=== PATIENT | male | born 1995 | race Caucasian/White ===

== ENCOUNTER 2017-06-16 11:14 | Inpatient (IN) | payer MEDICAID ==
[~2017-06-16] VITALS: Ht 167.6 cm; Wt 79.4 kg
[2017-06-16 11:34] VITALS: BP 115/62
--- NOTE | 2017-06-16 11:41 | NUR ---
PATIENT TO BED 1 AT THIS TIME.
--- NOTE | 2017-06-16 11:44 | NUR ---
DR. FORMAN AT BEDSIDE.
--- NOTE | 2017-06-16 11:45 | NUR ---
22/M BIB PARTNER FOR LEFT CHEST SQEEZING PAIN AND LEFT JAW PAIN 8/10 INTERMITTENTLY SINCE YESTERDAY MORNING. DENIES HX. DENIES MEDS. PARTNER STS PT DRINKS A LOT OF MONSTER SPORTS DRINKS. DENIES FEVER. PT APPEARS CALM, COOPERATIVE, NO DIAPHORESIS NOTED. VSS. EKG SHOWS ST ELEVATION X2 TESTS. DR. BARAHONA AT BEDSIDE. XR AT BEDSIDE. IV INSERTED. CP PROTOCOL IN PLACE.
[2017-06-16] MEDS ORDERED: NITROGLYCERIN 0.4 MG TAB SL ONE ×4 (11:50→12:15)
[2017-06-16] MEDS ORDERED: ASPIRIN 325 MG TAB PO ONE (11:50)
[2017-06-16 12:01] LABS: BASOPHILS # (AUTO) 0.3 K/uL (0.00-0.22); BASOPHILS % (AUTO) 4.4 % (0.0-2.0); EOSINOPHILS # (AUTO) 0.4 K/uL (0-0.4); EOSINOPHILS % (AUTO) 6.2 % (0.0-4.0); HEMATOCRIT 45.4 % (36-52); HEMOGLOBIN 15.3 g/dL (12.0-18.0); LYMPHOCYTES # (AUTO) 1.6 K/uL (2.0-11.5); LYMPHOCYTES % (AUTO) 25.4 % (20.5-51.1); MEAN CORPUSCULAR HEMOGLOBIN 30 pg (27-31); MEAN CORPUSCULAR HGB CONC 34 g/dL (33-37); MEAN CORPUSCULAR VOLUME 90 fL (80-94); MONOCYTES # (AUTO) 0.6 K/uL (0.8-1.0); MONOCYTES % (AUTO) 9.7 % (1.7-9.3); NEUTROPHILS # (AUTO) 3.3 K/uL (1.8-7.7); NEUTROPHILS % (AUTO) 54.3 % (42.2-75.2); PLATELET COUNT (AUTO) 200 K/uL (140-450); RED BLOOD CELL COUNT(AUTO) 5.07 MIL/uL (4.20-6.10); RED CELL DISTRIBUTION WIDTH 12.7 % (11.6-13.7); WHITE BLOOD COUNT (AUTO) 6.3 K/uL (4.5-11.0)
[2017-06-16] MEDS ORDERED: ASPIRIN 81 MG TAB.CHEW ONE (12:01)
--- NOTE | 2017-06-16 12:01 | NUR ---
URINAL GIVEN FOR SAMPLE.
--- NOTE | 2017-06-16 12:07 | NUR ---
SECOND ORDER VERBAL OF NITRO 0.4 SL GIVEN TO PT.
[2017-06-16] MEDS ORDERED: ONDANSETRON 4 MG/2 ML VIAL IVP ONE (12:20)
[2017-06-16] MEDS ORDERED: MORPHINE SULFATE 2 MG/ML SYR IVP ONE (12:20)
--- NOTE | 2017-06-16 12:28 | NUR ---
F/U EKG DONE AT BEDSIDE.
--- NOTE | 2017-06-16 12:28 | NUR ---
DR. FORMAN AT BEDSIDE. FAMILY AT BEDSIDE.
[2017-06-16 12:52] LABS: ALBUMIN 4.1 g/dL (3.4-5.0); ANION GAP 10.9 (8-16); CARBON DIOXIDE 30.1 mmol/L (21-32); CREATININE 0.9 mg/dL (0.7-1.3); TOTAL BILIRUBIN 0.3 mg/dL (0.0-1.0)
--- NOTE | 2017-06-16 14:16 | NUR ---
PATIENT ARRIVED ON UNIT WITH 2 ER NURSES ON A GURNEY. PATIENT AMBULATED TO BED. PATIENT GAIT STEADY. NASAL CANNULA INTACT AT 2L. IV AT RIGHT AND LEFT AC 20 G, SALINE LOCKED. PATIENT SKIN INTACT. REMOVED PANTS, SHOES, AND SOCKS AND PLACED IN PERSONAL BELONGING BAGS, AND PLACED IN DRAWER NEXT TO BED. MRSA SCREENING DONE. APPLIED BROWN SOCKS. ADMINISTERED TELE MONITOR. VITAL SIGNS WNL. PATIENT DENIES PAIN AT THIS TIME. WILL CONTINUE TO MONITOR PATIENT AND AWAIT ORDERS.
--- NOTE | 2017-06-16 14:30 | NUR ---
APatient will be admitted to care of DR. CEBALLOS. Admited to TELE. Will go to room 124-B. Belongings list completed. Report to JIM PATRICK.
[2017-06-16] MEDS: NACL 0.9% 1,000 ML IV SCH (14:38)
[2017-06-16] MEDS ORDERED: ACETAMINOPHEN 325 MG TAB PO PRN (14:40)
[2017-06-16] MEDS ORDERED: ONDANSETRON 4 MG/2 ML VIAL IVP PRN (14:40)
[2017-06-16] MEDS ORDERED: HYDROcodone/APAP 7.5/325 MG 1 TAB PO PRN (14:40)
[2017-06-16 14:47] VITALS: BP 113/75
--- NOTE | 2017-06-16 15:50 | NUR ---
PATIENT COMPLAINED OF CHEST PAIN. NO RADIATION. 6 OUT OF 10. ADMINISTERED NORCO. WILL REASSESS PATIENT.
[2017-06-16 16:08] LABS: FREE T4 (FREE THYROXINE) 0.95 ng/dL (0.76-1.46); MAGNESIUM 2.1 mg/dL (1.8-2.4); PHOSPHORUS 3.7 mg/dL (2.5-4.9); THYROID STIMULATING HORMONE 1.28 uIU/mL (0.34-3.74)
--- NOTE | 2017-06-16 17:37 | NUR ---
PATIENT RESTING COMFORTABLY. NO SIGNS OF DISTRESS. NO COMPLAINTS AT THIS TIME. WILL CONTINUE TO MONITOR PATIENT.
--- NOTE | 2017-06-16 19:10 | NUR ---
ENDORSED PATIENT TO PACKAGE COLLECTOR NURSE AT BEDSIDE FOR CONTINUITY OF CARE. PATIENT IS STABLE, SOME SIGNS OF ANXIETY. PACKAGE COLLECTOR NURSE AWARE.
--- NOTE | 2017-06-16 19:15 | NUR ---
RECEIVED PT AWAKE TALKING TO VISITORS AT BEDSIDE, VITAL SIGNS STABLE, SB ON TELE, ASYMPTOMATIC, DENIES ANY PAIN, ON O2 AT 2L/NC, NO SOB NOTED, IVF INFUSING WELL, PLAN OF CARE DISCUSSED, CALL LIGHT WITHIN REACH.
[2017-06-16 20:00] VITALS: BP 106/54
[2017-06-16] MEDS: METOPROLOL 25 MG TAB PO SCH (21:00)
[2017-06-16] MEDS: DOCUSATE SODIUM 100 MG GELCAP PO SCH (21:01)
--- NOTE | 2017-06-16 21:05 | NUR ---
DUE MED ADMINISTERED, METOPROLOL HOLD DUE TO DECREASE PULSE, ASYMPTOMATIC, ALL NEEDS ATTENDED.
--- NOTE | 2017-06-16 23:40 | NUR ---
PT SLEEPING, EASILY AROUSABLE, VITAL SIGNS TAKEN, SB ON TELE, ASYMPTOMATIC, DENIES PAIN, CONTINUE TO MONITOR CLOSELY.
[2017-06-17] VITALS: BP 94/52
--- NOTE | 2017-06-17 01:00 | NUR ---
PT AMBULATED TO BR WITH STEADY GAIT AND VOIDED FREELY, URINE SENT TO LAB FOR TEST.
[2017-06-17 01:15] LABS: APPEARANCE,URINE CLEAR (CLEAR); BILIRUBIN,URINE NEGATIVE (NEGATIVE); BLOOD, URINE NEGATIVE (NEGATIVE); COLOR,URINE YELLOW (YELLOW); LEUKOCYTE ESTERASE ,URINE NEGATIVE (NEGATIVE); NITRITE, URINE NEGATIVE (NEGATIVE); UGLUCOSE NEGATIVE (NEGATIVE)
[2017-06-17 01:22] LABS: BARBITURATE, URINE NEG. ng/ml (NEG <=200); BENZODIAZEPINE, URINE NEG. ng/mL (NEG <=200); CANNABINOID, URINE NEG. ng/mL (NEG <=50); COCAINE, URINE NEG. ng/mL (NEG <=300); OPIATE, URINE NEG. ng/mL (NEG <=2000); PHENCYCLIDINE SCREEN,URINE NEG. ng/mL (NEG <=25)
[2017-06-17] MEDS: NACL 0.9% 1,000 ML IV SCH (03:33)
[2017-06-17 04:00] VITALS: BP 99/55
--- NOTE | 2017-06-17 04:00 | NUR ---
PT SLEEPING, EASILY AROUSABLE, VITAL SIGNS STABLE, SB ON TELE, ASYMPTOMATIC, DENIES ANY PAIN, IVF INFUSING WELL, MONITORED CLOSELY.
[2017-06-17 05:08] LABS: BASOPHILS # (AUTO) 0.3 K/uL (0.00-0.22); BASOPHILS % (AUTO) 4.2 % (0.0-2.0); EOSINOPHILS # (AUTO) 0.4 K/uL (0-0.4); EOSINOPHILS % (AUTO) 6.6 % (0.0-4.0); HEMATOCRIT 43.2 % (36-52); HEMOGLOBIN 14.6 g/dL (12.0-18.0); LYMPHOCYTES # (AUTO) 1.8 K/uL (2.0-11.5); LYMPHOCYTES % (AUTO) 28.5 % (20.5-51.1); MEAN CORPUSCULAR HEMOGLOBIN 31 pg (27-31); MEAN CORPUSCULAR HGB CONC 34 g/dL (33-37); MEAN CORPUSCULAR VOLUME 91 fL (80-94); MONOCYTES # (AUTO) 0.5 K/uL (0.8-1.0); MONOCYTES % (AUTO) 8.6 % (1.7-9.3); NEUTROPHILS # (AUTO) 3.4 K/uL (1.8-7.7); NEUTROPHILS % (AUTO) 52.1 % (42.2-75.2); PLATELET COUNT (AUTO) 182 K/uL (140-450); RED BLOOD CELL COUNT(AUTO) 4.74 MIL/uL (4.20-6.10); RED CELL DISTRIBUTION WIDTH 12.3 % (11.6-13.7); WHITE BLOOD COUNT (AUTO) 6.4 K/uL (4.5-11.0)
[2017-06-17 05:31] LABS: ANION GAP 8.4 (8-16); CARBON DIOXIDE 29.8 mmol/L (21-32); CREATININE 0.8 mg/dL (0.7-1.3); POTASSIUM 4.2 mmol/L (3.5-5.1)
[2017-06-17 05:38] LABS: CHOL/HDL RATIO 3.3 (1-4.5); MAGNESIUM 2.1 mg/dL (1.8-2.4); PHOSPHORUS 4.4 mg/dL (2.5-4.9)
--- NOTE | 2017-06-17 06:28 | NUR ---
PT SLEEPING, EASILY AROUSABLE, DENIES ANY PAIN, NO SOB NOTED, PROTONIX PO GIVEN WITH EDUCATION PROVIDED, IVF INFUSING WELL, MONITORED CLOSELY.
[2017-06-17] MEDS ORDERED: PANTOPRAZOLE 40 MG TABEC PO SCH (06:30)
--- NOTE | 2017-06-17 07:10 | NUR ---
RECEIVED PATENT REPORT AT BEDSIDE. PATIENT AWAKE, ALERT AND ORIENTED. NO S/S OF DISTRESS NOTED. PATIENT ON ROOM AIR. NO SOB. NO C/P PAIN AT THIS TIME. PATIENT ON TELE MONITORING. BED LOWERED WITH CALL LIGHT WITHIN REACH. WILL CONTINUE TO MONITOR
--- NOTE | 2017-06-17 07:20 | NUR ---
PT AWAKE, NO SIGNS OF DISTRESS, REPORT GIVEN TO JIM LOPEZ FOR CONTINUITY OF CARE.
[2017-06-17 08:00] VITALS: BP 106/62
[2017-06-17] MEDS ORDERED: LISINOPRIL 5 MG TAB PO SCH (09:00)
[2017-06-17] MEDS ORDERED: ATORVASTATIN 20 MG TAB PO SCH (09:00)
[2017-06-17] MEDS: METOPROLOL 25 MG TAB PO SCH (09:00)
[2017-06-17] MEDS ORDERED: ECOTRIN 81 MG TABEC PO SCH (09:00)
--- NOTE | 2017-06-17 09:00 | NUR ---
NOTIFIED DR YOST ABOUT PATIENT'S HIGH BLOOD PRESSURE. DR RUVALCABA PUT ORDERS Addendum: 06/17/17 at 1101 by Greg Zarate RN WRONG PATIENT
--- NOTE | 2017-06-17 09:19 | NUR ---
PATIENT HAS BEEN SCREENED AND CATEGORIZED MODERATE NUTRITION RISK. PATIENT WILL BE SEEN WITHIN 3-5 DAYS OF ADMISSION. 06/19/17-06/21/[address]
[2017-06-17] MEDS: DOCUSATE SODIUM 100 MG GELCAP PO SCH (09:41)
--- NOTE | 2017-06-17 11:22 | NUR ---
DISCHARGE INSTRUCTIONS AND DISCHARGE PRESCRIPTIONS GIVEN. PATIENT VERBALIZED UNDERSTANDING. IV LINE DISCONTINUED. TELE LEADS TAKEN OFF. PATIENT LEFT WITH ALL HIS BELONGINGS AND DISCHARGE PAPERS. PATIENT LEFT IN STABLE CONDITION
== END 2017-06-17 11:24 | disposition home or self-care (01) | DRG 243 ==
LOC: MED 11:14 → MTU 13:50
PROVIDERS: ADMIT Family Medicine; ATTEND Family Medicine
DX: K21.9 Gastro-esophageal reflux disease without esophagitis (principal); M94.0 Chondrocostal junction syndrome [Tietze]
CPT/HCPCS: 36415; 71010; 80048; 80053; 80305; 81003; 83036; 83735; 83880; 84100; 84439; 84443; 84484; 85025; 85610; 85730; 87081; 93005; 96374; 96375; 99291; J2270; J2405; J7030; Q0092

== ENCOUNTER 2017-11-06 16:48 | Emergency (ER) | payer MEDICAID ==
[~2017-11-06] VITALS: Ht 170.2 cm; Wt 72.6 kg
--- NOTE | 2017-11-06 16:51 | NUR ---
PT TAKEN IN WHEELCHAIR TO BED 10
[2017-11-06 16:55] VITALS: BP 111/62
[2017-11-06] MEDS ORDERED: LIDOCAINE 2% 1000 MG/50 ML VIAL INJ ONE (16:55)
[2017-11-06] MEDS ORDERED: fentaNYL 0.05 MG/ML VIAL IM ONE (16:55)
--- NOTE | 2017-11-06 16:58 | NUR ---
22 YO MALE BIB SELF FOR LACERATION TO LATERAL LEFT LOWER LEG. BLEEDING CONTROLLED STATS HE WAS USING A CHAINSAW. AWAKE AND ALERT DENIES HX, MEDS OR ALLERGIES. . DENIES N/V/D; SKIN IS PINK/WARM/DRY; AAOX4 WITH EVEN AND STEADY GAIT; LUNGS CLEAR BL; HR EVEN AND REGULAR; PT DENIES ANY FEVER, CP, SOB, OR COUGH AT THIS TIME; PATIENT STATES PAIN OF 8/10 AT THIS TIME; VSS; PATIENT POSITIONED FOR COMFORT; HOB ELEVATED; BEDRAILS UP X2; BED DOWN. ER MD MADE AWARE OF PT STATUS.
[2017-11-06 18:22] VITALS: BP 110/62
--- NOTE | 2017-11-06 18:22 | NUR ---
Patient discharged with v/s stable. Written and verbal after care instructions given and explained. Patient alert, oriented and verbalized understanding of instructions. Ambulatory with steady gait. All questions addressed prior to discharge. ID band removed. Patient advised to follow up with PMD. Rx of keflex and motrin given. Patient educated on indication of medication including possible reaction and side effects. Opportunity to ask questions provided and answered.
== END 2017-11-06 18:22 | disposition home or self-care (01) ==
LOC: MED 16:48
DX: S81.812A Laceration without foreign body, left lower leg, initial encounter (principal); W22.8XXA Striking against or struck by other objects, initial encounter; Y93.89 Activity, other specified; Y92.89 Other specified places as the place of occurrence of the external cause; Y99.8 Other external cause status
CPT/HCPCS: 12002; 90471; 90715; 96372; 99284; J2001; J3010

== ENCOUNTER 2018-05-19 20:10 | Emergency (ER) | payer MEDICAID ==
[~2018-05-19] VITALS: Ht 170.2 cm; Wt 122.5 kg
[2018-05-19 20:12] VITALS: BP 163/80
--- NOTE | 2018-05-19 20:15 | NUR ---
PT TAKEN TO BED 3
--- NOTE | 2018-05-19 20:22 | NUR ---
PT PRESENTS TO ED WITH R EAR PAIN X 1 DAY. PT DENIES ANY TRAUMA OR INJURY. NO HEARING LOSS TO R EAR. PT PLACED IN BED, PENDING MD HAQUE. VSS.
[2018-05-19] MEDS ORDERED: KETOROLAC 30 MG/ML VIAL IM ONE (20:25)
[2018-05-19 20:39] VITALS: BP 163/80
--- NOTE | 2018-05-19 20:40 | NUR ---
Patient discharged with v/s stable. Written and verbal after care instructions given and explained. Patient alert, oriented and verbalized understanding of instructions. Ambulatory with steady gait. All questions addressed prior to discharge. ID band removed. Patient advised to follow up with PMD. Rx of AMOXICILLIN, TYLENOL WITH CODEINE, NAPROSYN given. Patient educated on indication of medication including possible reaction and side effects. Opportunity to ask questions provided and answered.
== END 2018-05-19 20:40 | disposition home or self-care (01) ==
LOC: MED 20:10
DX: H66.91 Otitis media, unspecified, right ear (principal)
CPT/HCPCS: 96372; 99283; J1885

== ENCOUNTER 2019-03-14 20:03 | Emergency (ER) | payer MEDICAID ==
[~2019-03-14] VITALS: Ht 162.6 cm; Wt 127.0 kg
[2019-03-14 20:14] VITALS: BP 134/75
--- NOTE | 2019-03-14 20:22 | NUR ---
24 Y/O MALE C/O PAIN ON SACRUM FOR 2 DAYS. PT. STATES THAT STATES HE HAS HAD THIS PROBLEM FOR A YEAR. ABOUT TWO DAYS AGO, THE AREA BECAME PAINFUL AND LEAKED THICK WHITE PUS WHEN PRESSURE WAS PLACED ON IT. HE STATES 8/10 PRESSURE PAIN HURTS WHEN SITTING . LEFT SACRUM SHOWS A 1 INCH INVERTED ABCESS. ER MD MADE AWARE OF STATUS. [id number]. PARENTS ARE AT BEDSIDE. HX- DENIES RX- NONE ALL-NKA
--- NOTE | 2019-03-14 20:25 | NUR ---
DR. LEAL EVALUATING PT AT BEDSIDE.
--- NOTE | 2019-03-14 20:27 | NUR ---
ISABELA KRISHNA AT BEDSIDE.
[2019-03-14] MEDS ORDERED: LIDOCAINE/EPI 1% 1:100000 20 ML VIAL INJ ONE (20:50)
--- NOTE | 2019-03-14 21:20 | NUR ---
PATIENT IS IN BED. PARENTS ARE AT BEDSIDE.
--- NOTE | 2019-03-14 23:56 | NUR ---
ISABELA KRISHNA AT BEDSIDE FOR PROCEDURE.
[2019-03-15] MEDS ORDERED: HYDROcodone/APAP 5/325 MG 1 TAB TAB PO ONE
[2019-03-15] MEDS ORDERED: CEPHALEXIN 500 MG CAP PO ONE
--- NOTE | 2019-03-15 00:11 | NUR ---
PTS WOUND WAS COVERD IN A NON ADHERING GAUZE.
--- NOTE | 2019-03-15 00:27 | NUR ---
Patient discharged with v/s stable. Written and verbal after care instructions given and explained. Patient alert, oriented and verbalized understanding of instructions. Ambulatory with steady gait. All questions addressed prior to discharge. ID band removed. Patient advised to follow up with PMD. Rx of KEFLEX 500MG; NORCO 5MG-325MG given. Patient educated on indication of medication including possible reaction and side effects. Opportunity to ask questions provided and answered.
[2019-03-15 00:28] VITALS: BP 137/73
== END 2019-03-15 00:27 | disposition home or self-care (01) ==
LOC: MED 20:03
DX: L05.01 Pilonidal cyst with abscess (principal)
CPT/HCPCS: 10080; 99284; J2001

== ENCOUNTER 2019-12-16 20:50 | Emergency (ER) | payer MEDICAID, OTHER ==
[~2019-12-16] VITALS: Ht 170.2 cm; Wt 122.5 kg
--- NOTE | 2019-12-16 21:30 | NUR ---
PT W/C ASSITED TO BED #2
--- NOTE | 2019-12-16 21:30 | NUR ---
PT 24 Y/O MALE BIB SELF FOR C/O 01/13 ANKLE PAIN S/P FALL YESTERDAY. PT NOTED WITH NON-PITTING EDEMA OF THE LEFT ANKLE. PEDAL PULSES FELT, STRONG, EQUAL BILAT. CAP REFILL <3. PT STATES UNABLE TO WALK DUE TO PAIN. CMS INTACT. PT DENIES NUMBNESS/TINGLING. PT STATES HE TOOK PAIN MEDICATION AT HOME 800MG 2 TAB @ 1400 WITH EFFECTIVE RESULTS BUT PAIN HAS RETURNED. PT STATES HE ALSO USED ICE PACKS FOR PAIN MANAGEMENT BUT PAIN RETURNED. BED LOCKED AND IN LOWEST POSTION. MEDHX: NONE ALLERGIES: NKA
[2019-12-16 21:31] VITALS: BP 134/84
--- NOTE | 2019-12-16 21:56 | NUR ---
XRAY AT BEDSIDE.
--- NOTE | 2019-12-16 23:02 | NUR ---
PT L ANKLE TX OF JOSÉ MANUEL WRAP AND CRUTCHES PROVIDED BY EMT. PT EDUCATION PROVIDED BY RN. CMS INTACT. CAP REFILL <3. PT ABLE TO VERBALIZE UNDERSTANDING OF EDUCATION PROVIDED.
[2019-12-16 23:10] VITALS: BP 134/84
--- NOTE | 2019-12-16 23:10 | NUR ---
Patient discharged with v/s stable. Written and verbal after care instructions given and explained. Patient alert, oriented and verbalized understanding of instructions. Ambulatory with STEADY GAIT WITH ASSISTANCE OF CRUTCHES. All questions addressed prior to discharge. ID band removed. Patient advised to follow up with PMD. Rx of MOTRIN, NORCO given. Patient educated on indication of medication including possible reaction and side effects. Opportunity to ask questions provided and answered.
== END 2019-12-16 23:10 | disposition home or self-care (01) ==
LOC: MED 20:50
DX: S93.402A Sprain of unspecified ligament of left ankle, initial encounter (principal); X58.XXXA Exposure to other specified factors, initial encounter; Y93.89 Activity, other specified; Y92.89 Other specified places as the place of occurrence of the external cause; Y99.8 Other external cause status
CPT/HCPCS: 73610; 99283; Q0092

== ENCOUNTER 2022-09-26 13:20 | Emergency (ER) | payer OTHER ==
[~2022-09-26] VITALS: Ht 172.7 cm; Wt 108.9 kg
[2022-09-26 13:24] VITALS: BP 161/104
--- NOTE | 2022-09-26 15:02 | NUR ---
Patient discharged with v/s stable. Written and verbal after care instructions given and explained. Patient verbalized understanding. Ambulatory with steady gait. All questions addressed prior to discharge. Advised to follow up with PMD.
== END 2022-09-26 15:01 | disposition home or self-care (01) ==
LOC: MED 13:20
DX: R00.2 Palpitations (principal); R07.9 Chest pain, unspecified; F15.10 Other stimulant abuse, uncomplicated
CPT/HCPCS: 93005; 99283